=== PATIENT | male | born 1955 | race Caucasian/White ===

== ENCOUNTER 2023-03-10 18:33 | Emergency (ER) | payer MEDICARE ==
[~2023-03-10] VITALS: Ht 167.6 cm; Wt 74.8 kg
[~2023-03-10 18:33] MED LIST: ASPI-1822 PO; ENAL-197 PO; IBUP-1842 PO; METF-1139 PO
[2023-03-10 19:20] VITALS: BP 150/80; PULSE 85; RESP 17; TEMP 98; O2SAT 97
--- NOTE | 2023-03-10 19:23 | NUR ---
TO LOBBY A/W BED AMBULATORY
--- NOTE | 2023-03-10 20:20 | NUR ---
SEEN AND EXAMINED BY LORRI
[2023-03-10 20:51] VITALS: BP 148/69; PULSE 80; RESP 16; TEMP 98; O2SAT 98
--- NOTE | 2023-03-10 20:51 | NUR ---
Patient discharged with v/s stable. Written and verbal after care instructions given and explained. Patient verbalized understanding. Ambulatory with steady gait. All questions addressed prior to discharge. Advised to follow up with PMD.
== END 2023-03-10 20:51 | disposition home or self-care (01) ==
LOC: MED 18:33
DX: S93.402A Sprain of unspecified ligament of left ankle, initial encounter (principal); S80.12XA Contusion of left lower leg, initial encounter; E11.9 Type 2 diabetes mellitus without complications; I10 Essential (primary) hypertension; Z86.73 Personal history of transient ischemic attack (TIA), and cerebral infarction without residual deficits; Z79.899 Other long term (current) drug therapy; Z79.82 Long term (current) use of aspirin; Z79.1 Long term (current) use of non-steroidal anti-inflammatories (NSAID); Z88.0 Allergy status to penicillin; W01.0XXA Fall on same level from slipping, tripping and stumbling without subsequent striking against object, initial encounter; Y92.89 Other specified places as the place of occurrence of the external cause; Y93.89 Activity, other specified; Y99.8 Other external cause status
CPT/HCPCS: 73610; 99283